=== PATIENT | female | born 1980 | race Caucasian/White ===

== ENCOUNTER 2019-10-07 17:43 | Inpatient (IN) | payer OTHER, SELFPAY ==
[~2019-10-07] VITALS: Ht 162.6 cm; Wt 72.1 kg
[2019-10-07 17:50] VITALS: BP_SYST 120
[2019-10-07 18:46] LABS: HEMATOCRIT 24.7 % (36-48); MEAN CORPUSCULAR HEMOGLOBIN 13 pg (27-31); MEAN CORPUSCULAR HGB CONC 25 % (32-36); MEAN CORPUSCULAR VOLUME 51 fL (79.0-98.0); PLATELET COUNT (AUTO) 248 K/uL (130-430); RED BLOOD CELL COUNT(AUTO) 4.88 MIL/uL (4.2-6.2); RED CELL DISTRIBUTION WIDTH 21.4 % (9.0-15.0); WHITE BLOOD COUNT (AUTO) 6.1 K/uL (4.8-10.8)
[2019-10-07 19:03] LABS: CALCIUM 8.9 mg/dL (8.4-11.0); CREATININE 0.41 mg/dL (0.55-1.30); HEMOGLOBIN 6.1 g/dL (12.0-16.0); POTASSIUM 3.6 mmol/L (3.5-5.1)
[2019-10-07 19:09] LABS: ALBUMIN 3.7 g/dL (3.4-4.8); TOTAL BILIRUBIN 0.8 mg/dL (0.0-1.0)
[2019-10-07 19:52] LABS: BASOPHILS % (MANUAL) 0 % (0-2); EOSINOPHILS % (MANUAL) 3 % (0-7); LYMPHOCYTES % (MANUAL) 40 % (20-46); MONOCYTES % (MANUAL) 4 % (0-11)
[2019-10-07 21:07] LABS: INR 0.9 (0.8-1.2); PROTHROMBIN TIME 9.3 SECS (9.5-12.5)
[2019-10-07] MEDS ORDERED: FLUT1BLS5 IH (21:14)
[2019-10-07] MEDS ORDERED: DOXY100C PO (21:14)
[2019-10-07] MEDS ORDERED: MONT10TA25 PO (21:14)
[2019-10-07] MEDS ORDERED: IOHEXOL 100 ML IV ONE (21:41)
[2019-10-07 22:14] VITALS: BP_SYST 115
[2019-10-07] MEDS ORDERED: HYDROcodone/ACETAMIN 5-325 MG TAB (NORCO/ VICODIN) PO PRN (22:15)
[2019-10-07] MEDS: NACL 0.9% 1,000 ML IV SCH (22:30)
[2019-10-07] MEDS: PANTOPRAZOLE SODIUM 40 MG/VIAL (PROTONIX) IVP SCH (23:01)
[2019-10-07 23:49] VITALS: BP_SYST 107
[2019-10-08 00:14] VITALS: BP_SYST 106
[2019-10-08 05:10] VITALS: BP_SYST 106
[2019-10-08 06:34] LABS: HEMATOCRIT 27.9 % (36-48); HEMOGLOBIN 8.1 g/dL (12.0-16.0); MEAN CORPUSCULAR HEMOGLOBIN 17 pg (27-31); MEAN CORPUSCULAR HGB CONC 29 % (32-36); MEAN CORPUSCULAR VOLUME 58 fL (79.0-98.0); PLATELET COUNT (AUTO) 181 K/uL (130-430); RED BLOOD CELL COUNT(AUTO) 4.79 MIL/uL (4.2-6.2); RED CELL DISTRIBUTION WIDTH 34.9 % (9.0-15.0); WHITE BLOOD COUNT (AUTO) 4.5 K/uL (4.8-10.8)
[2019-10-08 06:56] LABS: ALBUMIN 3.2 g/dL (3.4-4.8); CALCIUM 8.4 mg/dL (8.4-11.0); CREATININE 0.5 mg/dL (0.55-1.30); POTASSIUM 3.7 mmol/L (3.5-5.1)
[2019-10-08 07:04] LABS: PROTHROMBIN TIME 9.6 SECS (9.5-12.5)
[2019-10-08 07:23] LABS: TOTAL IRON BIND. CAPACITY 437 ug/dL (250-450)
[2019-10-08] MEDS ORDERED: BUDESONIDE 0.5 MG/2 ML AMPUL.NEB INH SCH (07:30)
[2019-10-08] MEDS ORDERED: ALBUTEROL SULFATE 0.083% 2.5 MG/3 ML VIAL.NEB INH SCH (07:30)
[2019-10-08 07:59] LABS: ATYPICAL LYMPHOCYTES % 0 % (0-0); BAND % (MANUAL) 0 % (0-6); LYMPHOCYTES % (MANUAL) 44 % (20-46); MONOCYTES % (MANUAL) 6 % (0-11)
[2019-10-08 08:00] VITALS: BP_SYST 107
[2019-10-08] MEDS: PANTOPRAZOLE SODIUM 40 MG/VIAL (PROTONIX) IVP SCH ×2 (08:33→20:39)
[2019-10-08] MEDS: DOXYCYCLINE HYCLATE 100 MG CAPSULE PO SCH ×2 (08:33→20:39)
[2019-10-08] MEDS: NACL 0.9% 1,000 ML IV SCH ×2 (08:34→20:39)
[2019-10-08] MEDS ORDERED: FLUTICASONE/VILANTEROL 1 EACH BLST.W.DEV INH SCH ×2 (09:00)
[2019-10-08 09:55] LABS: BASOPHILS % (MANUAL) 0 % (0-2); EOSINOPHILS % (MANUAL) 0 % (0-7)
[2019-10-08] MEDS: MONTELUKAST 10 MG TABLET PO SCH (16:34)
[2019-10-08] MEDS ORDERED: SOD FERRIC GLUC COMPLEX/SUC 125 MG in NS 100 ML IV SCH (19:45)
[2019-10-08 20:00] VITALS: BP_SYST 104
[2019-10-09] VITALS: BP_SYST 102
[2019-10-09] MEDS: NACL 0.9% 1,000 ML IV SCH (04:40)
[2019-10-09 07:53] LABS: ALBUMIN 3.3 g/dL (3.4-4.8); CALCIUM 8.6 mg/dL (8.4-11.0); CREATININE 0.47 mg/dL (0.55-1.30); POTASSIUM 3.5 mmol/L (3.5-5.1); TOTAL BILIRUBIN 1.6 mg/dL (0.0-1.0)
[2019-10-09 08:00] VITALS: BP_SYST 114
[2019-10-09 08:06] LABS: FOLATE (FOLIC ACID) 17.2 ng/mL (>3.0)
[2019-10-09 08:20] LABS: BASOPHILS # (AUTO) 0.1 K/uL (0.0-0.2); BASOPHILS % (AUTO) 1.6 % (0.0-2.0); EOSINOPHILS # (AUTO) 0.1 K/uL (0.0-0.4); EOSINOPHILS % (AUTO) 1.2 % (0.0-4.0); HEMATOCRIT 28.2 % (36-48); LYMPHOCYTES # (AUTO) 1.4 K/uL (1.0-5.5); LYMPHOCYTES % (AUTO) 35.1 % (20.5-51.5); MEAN CORPUSCULAR HEMOGLOBIN 17 pg (27-31); MEAN CORPUSCULAR HGB CONC 29 % (32-36); MEAN CORPUSCULAR VOLUME 58 fL (79.0-98.0); MONOCYTES # (AUTO) 0.5 K/uL (0.0-1.0); PLATELET COUNT (AUTO) 183 K/uL (130-430); RED BLOOD CELL COUNT(AUTO) 4.84 MIL/uL (4.2-6.2); RED CELL DISTRIBUTION WIDTH 33.9 % (9.0-15.0); WHITE BLOOD COUNT (AUTO) 4.1 K/uL (4.8-10.8)
[2019-10-09] MEDS: DOXYCYCLINE HYCLATE 100 MG CAPSULE PO SCH ×2 (08:34→21:16)
[2019-10-09] MEDS: PANTOPRAZOLE SODIUM 40 MG/VIAL (PROTONIX) IVP SCH ×2 (08:34→21:16)
[2019-10-09 08:35] LABS: TOTAL IRON BIND. CAPACITY 411 ug/dL (250-450)
[2019-10-09] MEDS: SOD FERRIC GLUC COMPLEX/SUC 125 MG in NS 100 ML IV SCH (10:49)
[2019-10-09 11:54] LABS: NEUTROPHILS % (AUTO) 50.1 % (40.0-70.0)
[2019-10-09] MEDS: MONTELUKAST 10 MG TABLET PO SCH (18:35)
[2019-10-09 19:20] VITALS: BP_SYST 109
[2019-10-10 01:37] VITALS: BP_SYST 110
[2019-10-10 06:19] LABS: CREATININE 0.57 mg/dL (0.55-1.30); POTASSIUM 3.8 mmol/L (3.5-5.1)
[2019-10-10 06:51] LABS: BASOPHILS # (AUTO) 0.1 K/uL (0.0-0.2); BASOPHILS % (AUTO) 1.8 % (0.0-2.0); EOSINOPHILS # (AUTO) 0.1 K/uL (0.0-0.4); HEMATOCRIT 28.6 % (36-48); HEMOGLOBIN 8.2 g/dL (12.0-16.0); LYMPHOCYTES % (AUTO) 36.9 % (20.5-51.5); MEAN CORPUSCULAR HEMOGLOBIN 17 pg (27-31); MEAN CORPUSCULAR HGB CONC 29 % (32-36); MEAN CORPUSCULAR VOLUME 59 fL (79.0-98.0); MONOCYTES # (AUTO) 0.5 K/uL (0.0-1.0); MONOCYTES % (AUTO) 10.2 % (1.7-9.3); NEUTROPHILS # (AUTO) 2.7 K/uL (1.8-7.7); NEUTROPHILS % (AUTO) 50.1 % (40.0-70.0); PLATELET COUNT (AUTO) 182 K/uL (130-430); RED BLOOD CELL COUNT(AUTO) 4.88 MIL/uL (4.2-6.2); RED CELL DISTRIBUTION WIDTH 33.9 % (9.0-15.0); WHITE BLOOD COUNT (AUTO) 5.3 K/uL (4.8-10.8)
[2019-10-10 08:00] VITALS: BP_SYST 100
[2019-10-10] MEDS: SOD FERRIC GLUC COMPLEX/SUC 125 MG in NS 100 ML IV SCH (08:53)
[2019-10-10] MEDS: DOXYCYCLINE HYCLATE 100 MG CAPSULE PO SCH ×2 (08:53→20:47)
[2019-10-10] MEDS: PANTOPRAZOLE SODIUM 40 MG/VIAL (PROTONIX) IVP SCH ×2 (08:53→20:47)
[2019-10-10 11:25] VITALS: BP_SYST 98
[2019-10-10 14:36] LABS: IMMUNOGLOBULIN A, SERUM <5 mg/dL (87-352)
[2019-10-10 15:24] VITALS: BP_SYST 99
[2019-10-10] MEDS ORDERED: BISACODYL 5 MG TABLET.DR (DULCOLAX) PO ONE (17:00)
[2019-10-10] MEDS: MONTELUKAST 10 MG TABLET PO SCH (17:28)
[2019-10-10] MEDS ORDERED: GOLYTELY / COLYTE SOLUTION 4 LITERS PO ONE (18:00)
[2019-10-10 20:00] VITALS: BP_SYST 116
[2019-10-10] MEDS ORDERED: ONDANSETRON HCL 4 MG/2 ML VIAL IVP ONE (20:30)
[2019-10-11] VITALS: BP_SYST 114
[2019-10-11 06:19] LABS: BASOPHILS # (AUTO) 0.1 K/uL (0.0-0.2); BASOPHILS % (AUTO) 1.1 % (0.0-2.0); EOSINOPHILS % (AUTO) 0.5 % (0.0-4.0); HEMATOCRIT 29.8 % (36-48); HEMOGLOBIN 8.5 g/dL (12.0-16.0); LYMPHOCYTES # (AUTO) 2.4 K/uL (1.0-5.5); LYMPHOCYTES % (AUTO) 37.4 % (20.5-51.5); MEAN CORPUSCULAR HEMOGLOBIN 17 pg (27-31); MEAN CORPUSCULAR HGB CONC 29 % (32-36); MEAN CORPUSCULAR VOLUME 59 fL (79.0-98.0); MONOCYTES # (AUTO) 0.7 K/uL (0.0-1.0); MONOCYTES % (AUTO) 10.4 % (1.7-9.3); NEUTROPHILS # (AUTO) 3.3 K/uL (1.8-7.7); NEUTROPHILS % (AUTO) 50.6 % (40.0-70.0); PLATELET COUNT (AUTO) 177 K/uL (130-430); RED BLOOD CELL COUNT(AUTO) 5.03 MIL/uL (4.2-6.2); RED CELL DISTRIBUTION WIDTH 35.9 % (9.0-15.0); WHITE BLOOD COUNT (AUTO) 6.4 K/uL (4.8-10.8)
[2019-10-11 07:10] LABS: INR 0.9 (0.8-1.2); PROTHROMBIN TIME 9.5 SECS (9.5-12.5)
[2019-10-11 07:20] LABS: CALCIUM 9.1 mg/dL (8.4-11.0); CREATININE 0.56 mg/dL (0.55-1.30); POTASSIUM 3.2 mmol/L (3.5-5.1)
[2019-10-11 07:42] VITALS: BP_SYST 114
[2019-10-11 08:42] VITALS: BP_SYST 91
[2019-10-11] MEDS: PANTOPRAZOLE SODIUM 40 MG/VIAL (PROTONIX) IVP SCH ×2 (09:02→21:39)
[2019-10-11] MEDS: SOD FERRIC GLUC COMPLEX/SUC 125 MG in NS 100 ML IV SCH (09:02)
[2019-10-11] MEDS: DOXYCYCLINE HYCLATE 100 MG CAPSULE PO SCH ×2 (09:03→21:39)
[2019-10-11] MEDS: MIDAZOLAM HCL 5 MG/5 ML VIAL ONE ×4 (11:05→11:15)
[2019-10-11] MEDS: MEPERIDINE HCL/PF 100 MG/ML AMP ONE ×5 (11:05→11:29)
[2019-10-11] MEDS ORDERED: BENZOCAINE 20% 0.5mL UD SPRAY MM ONE (11:24)
[2019-10-11 13:07] VITALS: BP_SYST 107
[2019-10-11] MEDS: MONTELUKAST 10 MG TABLET PO SCH (21:50)
[2019-10-12] VITALS: BP_SYST 117
[2019-10-12 08:45] VITALS: BP_SYST 108
[2019-10-12] MEDS: PANTOPRAZOLE SODIUM 40 MG/VIAL (PROTONIX) IVP SCH (08:57)
[2019-10-12] MEDS: DOXYCYCLINE HYCLATE 100 MG CAPSULE PO SCH (08:57)
[2019-10-12] MEDS: SOD FERRIC GLUC COMPLEX/SUC 125 MG in NS 100 ML IV SCH (08:58)
[2019-10-12 11:25] VITALS: BP_SYST 108
[2019-10-12 13:26] LABS: HAPTOGLOBIN 124 mg/dL (42-296)
[2019-10-13 05:07] LABS: ENDOMYSIAL ANTIBODY IGA Negative (Negative)
== END 2019-10-12 11:58 | disposition home or self-care (01) | DRG 394 ==
LOC: SED 17:43 → SMU 21:14
PROVIDERS: ADMIT Internal Medicine Hospice and Palliative Medicine; ATTEND Internal Medicine Hospice and Palliative Medicine
PROC: 30233N1 Transfusion of Nonautologous Red Blood Cells into Peripheral Vein, Percutaneous Approach (ICD-10-PCS; 2019-10-07)
PROC: 0DB78ZX Excision of Stomach, Pylorus, Via Natural or Artificial Opening Endoscopic, Diagnostic (ICD-10-PCS; principal; 2019-10-11 11:00)
PROC: 0DBE8ZX Excision of Large Intestine, Via Natural or Artificial Opening Endoscopic, Diagnostic (ICD-10-PCS; 2019-10-11 11:00)
DX: K62.6 Ulcer of anus and rectum (principal); D84.9 Immunodeficiency, unspecified; D83.9 Common variable immunodeficiency, unspecified; D50.9 Iron deficiency anemia, unspecified; K29.70 Gastritis, unspecified, without bleeding; K44.9 Diaphragmatic hernia without obstruction or gangrene; K64.9 Unspecified hemorrhoids; K52.9 Noninfective gastroenteritis and colitis, unspecified; R16.1 Splenomegaly, not elsewhere classified; N92.6 Irregular menstruation, unspecified; Z79.899 Other long term (current) drug therapy; Z90.2 Acquired absence of lung [part of]; Z03.818 Encounter for observation for suspected exposure to other biological agents ruled out
CPT/HCPCS: 36415; 36430; 43239; 45378; 80048; 80053; 82607; 82728; 82746; 82784; 83010; 83516; 83540-TC; 83550-TC; 83615-TC; 85007; 85025; 85027; 85044-TC; 85384-TC; 85610-TC; 85730-TC; 86255; 86886; 86900; 86901; 86920; 87081; 88305; 88312; 88313; 99285; C9113; J2175; J2250; J2405; J2916; J7030; J7050; P9021; Q9967; U0003-CS